=== PATIENT | female | born 2000 | race Hispanic/Latino ===

== ENCOUNTER 2022-08-25 07:48 | Emergency (ER) | payer OTHER ==
[2022-08-25] MEDS ORDERED: Ibuprofen 200 MG TAB ONE (08:16)
[2022-08-25 09:17] LABS: SARS-CoV-2 NAA Rapid Test Not Detected (NotDetected)
== END 2022-08-25 09:41 | disposition home or self-care (01) ==
LOC: CSHERS 07:48
DX: J02.9 Acute pharyngitis, unspecified (principal); Z20.822 Contact with and (suspected) exposure to COVID-19
CPT/HCPCS: 87081; 87430; 99283